=== PATIENT | female | born 1985 | race American Indian/Alaskan Native ===

== ENCOUNTER → 2017-08-17 | Outpatient (CLI) | payer BC | END | disposition home or self-care (01) | LOC: C.LAB 09:07 | PROVIDERS: ATTEND Obstetrics & Gynecology | DX: Z31.41 Encounter for fertility testing (principal) ==

== ENCOUNTER → 2017-09-04 | Outpatient (CLI) | payer BC | END | disposition home or self-care (01) | LOC: C.LAB 16:48 | PROVIDERS: ATTEND Obstetrics & Gynecology | DX: N97.9 Female infertility, unspecified (principal) ==

== ENCOUNTER → 2017-11-04 | Outpatient (CLI) | payer BC ==
[2017-11-04 17:24] LABS: HEMATOCRIT 34.9 % (37-47); HEMOGLOBIN 12.4 g/dL (12.0-16.0); MEAN CELL VOLUME 76.5 fL (80-100); MEAN CORPUSCULAR HEMOGLOBIN 27.2 pg (25-34); MEAN CORPUSCULAR HGB CONC 35.5 g/dl (32-36); MEAN PLATELET VOLUME 10.5 fL (7.4-10.4); PLATELET COUNT 219 K/uL (130-400); RED CELL DISTRIBUTION WIDTH CV 13.3 % (11.5-14.5); RED CELL DISTRIBUTION WIDTH SD 37.3 fL (36.4-46.3); WHITE BLOOD COUNT 9.66 K/uL (4.8-10.8)
[2017-11-04 18:41] LABS: HEP C IGG 13 YRS+OLDER_RFLX NEG (NEG)
== END | disposition home or self-care (01) ==
LOC: C.LAB 16:39
PROVIDERS: ATTEND Specialist
DX: Z01.83 Encounter for blood typing (principal); Z13.29 Encounter for screening for other suspected endocrine disorder; Z13.0 Encounter for screening for diseases of the blood and blood-forming organs and certain disorders involving the immune mechanism; Z13.21 Encounter for screening for nutritional disorder

== ENCOUNTER → 2017-11-17 | Outpatient (CLI) | payer BC | END | disposition home or self-care (01) | LOC: C.LAB 18:56 | PROVIDERS: ATTEND Specialist | DX: R79.89 Other specified abnormal findings of blood chemistry (principal) ==

== ENCOUNTER → 2018-02-02 | Outpatient (CLI) | payer BC | END | disposition home or self-care (01) | LOC: C.LAB1850 08:23 | PROVIDERS: ATTEND Specialist | DX: Z32.00 Encounter for pregnancy test, result unknown (principal) ==

== ENCOUNTER → 2018-02-10 | Outpatient (CLI) | payer BC | END | disposition home or self-care (01) | LOC: C.LAB1850 10:00 | PROVIDERS: ATTEND Specialist | DX: Z31.41 Encounter for fertility testing (principal) ==

== ENCOUNTER → 2018-02-17 | Outpatient (CLI) | payer BC ==
[2018-02-17 11:46] LABS: LUTEINIZING HORMONE 3.32 IU/L
== END | disposition home or self-care (01) ==
LOC: C.LAB1850 10:54
PROVIDERS: ATTEND Specialist
DX: Z31.41 Encounter for fertility testing (principal)

== ENCOUNTER → 2018-02-24 | Outpatient (CLI) | payer BC | END | disposition home or self-care (01) | LOC: C.LAB1850 07:19 | PROVIDERS: ATTEND Specialist | DX: Z31.41 Encounter for fertility testing (principal) ==

== ENCOUNTER 2020-10-03 07:06 | Inpatient (IN) ==
--- NOTE | 2020-10-03 07:36 | History & Physical Report ---
Date of Service October 03, 2020 Assessment & Plan (1) Normal labor: (2) Gestational diabetes: plan admission. epidural on demand. arom/pit as needed. check hourly blood sugars. anticipate . fetus category one. History of Present Illness Chief Complaint: contractions Primary Care Provider: George Shahid MD Patient is a 35yowf with iup at 40 3/7 weeks who presents to labor and delivery complaining of contractions, very painful. no lof/vb. +fm. Was last in the office and . complicated by ama and diet controlled GDM labs--B+/ab-/ri/rprnr/hepb-/hiv-/gc/ct-/ gbs neg/pano low risk/cf/sma neg/ carrier alpha thal Allergies Allergy/AdvReac Type Severity Reaction Status Date / Time No Known Allergies Allergy Verified 09/28/20 15:07 Home Medications Medication Instructions Recorded Confirmed Type calcium carbonate PO 02/16/20 09/28/20 History pediatric multivit no.17-ferrous tab PO 02/16/20 09/28/20 History fumarate 15 mg iron chewable tablet acetone (urine) test #50 ea 05/26/20 09/28/20 Rx blood sugar diagnostic #150 ea 05/26/20 09/28/20 Rx blood-glucose meter #1 ea 05/26/20 09/28/20 Rx lancets 33 gauge #150 ea 05/26/20 09/28/20 Rx Patient History Medical History Chorioretinal scar S/P retinal detachment repair Retinal detachment Surgical History H/O eye surgery H/O wisdom tooth extraction Family History Other Adopted Social History Smoking Status: Never smoker Hx Alcohol Use: Yes Hx Substance Use: No marital status: marital status details: Crow (35) [phone] Current Living Situation: Spouse Current Living Situation Comment: lives with spouse, 2 cats, 1 dog, 5 gerbils, spouse to change litter. 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 OB History g1--present Physical Exam Constitutional: WD/WN, vitals as above Gastrointestinal (Abdomen): soft, gravid, nt Psychiatric: A+Ox3, euthymic affect Genitourinary: cx-- per nursing toco--q2-3min, efm--125 with mod variability, accels to 150s, no decels. Results & Data ([facility]) Vital Signs (Past 12 Hours) Vital Signs Pulse BP 10/03/20 07:22 117 H 130/63 Code Status & VTE Plan VTE Prophylaxis Plan VTE Prophylaxis will be ordered: No Coding Level of Care Code None Diagnoses Normal labor O80; Z37.9 Gestational diabetes O24.419
[2020-10-03] MEDS: LACTATED RINGER'S 1,000 ML IV PRN ×2 (07:55→10:30)
[2020-10-03 07:58] LABS: Hematocrit (blood only) 35.6 % (37-47); Hemoglobin 12.8 g/dL (12.0-16.0); Mean Corpuscular Hemoglobin 28.7 pg (25-34); Mean Corpuscular Volume 79.8 fL (80-100); Mean Platelet Volume 11.1 fL (7.4-10.4); Platelet Count 144 K/uL (130-400); RDW Coefficient of Variation 15.6 % (11.5-14.5); RDW Standard Deviation 45.4 fL (36.4-46.3); Red Blood Count 4.46 M/uL (4.2-5.4); White Blood Count 12.53 K/uL (4.8-10.8)
[2020-10-03] MEDS ORDERED: BUPIVACAINE 0.25% 30 ML VIAL ONE (08:12)
[2020-10-03] MEDS ORDERED: fentaNYL citrate 100 MCG/2 ML VIAL ONE (08:12)
[2020-10-03] MEDS ORDERED: ePHEDrine sulfate 50 MG/ML AMP ONE (08:12)
[2020-10-03] MEDS ORDERED: SODIUM CHLORIDE 0.9% INJ 10 ML VIAL ONE (08:12)
[2020-10-03] MEDS ORDERED: fentaNYL 2MCG/ML ROPIVACAINE 1.25MG/ML 100 ML BAG EPI ONE (08:13)
[2020-10-03] MEDS ORDERED: ONDANSETRON INJ 2 MG/ML 2 ML VIAL IV PRN (08:18)
[2020-10-03] MEDS ORDERED: NALOXONE HCL 0.4 MG/1 ML VIAL/CARP IV PRN (08:18)
[2020-10-03] MEDS ORDERED: ePHEDrine sulfate 50 MG/ML AMP IV PRN (08:18)
[2020-10-03] MEDS ORDERED: diphenhydrAMINE 50 MG/ML VIAL IV PRN (08:18)
[2020-10-03] MEDS ORDERED: NALOXONE HCL 1 MG in SODIUM CHLORIDE 0.9% 1000ML 1,000 ML IV PRN (08:18)
[2020-10-03] MEDS ORDERED: fentaNYL 2MCG/ML ROPIVACAINE 1.25MG/ML 100 ML BAG EPI PRN (08:18)
--- NOTE | 2020-10-03 08:20 | Anesthesiology Consultation ---
Date of Service October 03, 2020 Assessment & Plan (1) Encounter for pre-operative examination: Chart Review Chart Review: Patient NOT seen in Pre Admission Testing and Acceptable Risk for Labor Epidural Consults Requested none History Height/Weight Height: 5 ft Weight: 55.792 kg Allergies Allergy/AdvReac Type Severity Reaction Status Date / Time No Known Allergies Allergy Verified 09/28/20 15:07 Medications Home Medications Medication Instructions Recorded Confirmed Last Taken calcium carbonate PO 02/16/20 09/28/20 Unknown pediatric multivit no.17-ferrous tab PO 02/16/20 09/28/20 Unknown fumarate 15 mg iron chewable tablet acetone (urine) test #50 ea 05/26/20 09/28/20 Unknown blood sugar diagnostic #150 ea 05/26/20 09/28/20 Unknown blood-glucose meter #1 ea 05/26/20 09/28/20 Unknown lancets 33 gauge #150 ea 05/26/20 09/28/20 Unknown Active Medications Generic Name Dose Route Start Last Admin Trade Name Freq PRN Reason Stop Dose Admin Lactated Ringer's 1,000 mls @ 125 mls/hr 10/03/20 07:31 10/03/20 07:55 Lr IV 10/05/20 07:30 999 mls/hr .Q8H PRN Administration L&D Protocol Protocol Past Medical History Medical History Chorioretinal scar S/P retinal detachment repair Retinal detachment Exercise / Class Metabolic Activity II 4-5 Yardwork/Stairs/Walk up hill Past Family History Family History Other Adopted Past Surgical History Surgical History H/O eye surgery H/O wisdom tooth extraction Past Anesthesia History No Hx of Anesthesia Complications and No Family Hx of Anesthesia Complications History of PONV No Hx of PONV and No Hx of Motion Sickness Social History Smoking Status: Never smoker Do You Dip or Chew Tobacco: No Hx Alcohol Use: Yes Hx Substance Use: No substance use type: does not use Physical Exam Vital Signs Last Vital Signs Temp 36.5 C 10/03/20 07:40 Pulse 118 H 10/03/20 08:29 Resp 20 10/03/20 07:40 BP 130/63 10/03/20 07:22 Pulse Ox 99 10/03/20 08:29 Testing Laboratory Results 10/03/20 07:38
[2020-10-03] MEDS ORDERED: HYDROCORTISONE 1% CRM 30 GM TUBE EXT PRN (09:46)
--- NOTE | 2020-10-03 13:10 | Labor Progress Brief Note ---
Date of Service October 03, 2020 Patient fully dilated was having recurrent D cells which initially improved with positioning. We then had her start to push and had some recurrent late decelerations these then resolved. I discussed the possibility of using the vacuum and what this would involve potential risks and benefits if the tracing worsens further would recommend operative vaginal intervention with vacuum bladder has been drained already Results & Data ([facility]) Vital Signs (Past 12 Hours) Vital Signs Temp Pulse Resp BP Pulse Ox 10/03/20 13:07 101 H 110/66 10/03/20 13:04 99 H 100 10/03/20 12:59 105 H 100 10/03/20 12:54 96 H 100 10/03/20 12:49 92 H 100 10/03/20 12:44 111 H 100 10/03/20 12:39 97 H 100 10/03/20 12:37 81 131/72 10/03/20 12:34 74 100 10/03/20 12:30 20 10/03/20 12:29 89 100 10/03/20 12:24 69 100 10/03/20 12:22 75 120/63 10/03/20 12:19 80 100 10/03/20 12:14 76 100 10/03/20 12:09 76 100 10/03/20 12:06 92 H 103/59 L 10/03/20 12:04 73 100 10/03/20 11:59 86 100 10/03/20 11:54 84 100 10/03/20 11:53 99 H 118/61 10/03/20 11:49 97 H 100 10/03/20 11:44 83 99 10/03/20 11:39 81 100 10/03/20 11:37 98 H 106/71 10/03/20 11:34 71 100 10/03/20 11:29 73 100 10/03/20 11:24 72 100 10/03/20 11:21 74 105/62 10/03/20 11:19 71 100 10/03/20 11:14 77 100 10/03/20 11:09 72 100 10/03/20 11:07 74 105/59 L 10/03/20 11:04 72 100 10/03/20 10:59 74 100 10/03/20 10:54 75 100 10/03/20 10:52 102 H 123/58 L 10/03/20 10:49 89 100 10/03/20 10:44 79 100 10/03/20 10:39 73 100 10/03/20 10:37 74 109/68 10/03/20 10:34 76 100 10/03/20 10:29 78 100 10/03/20 10:25 90 89 L 10/03/20 10:24 86 100 10/03/20 10:21 79 107/64 10/03/20 10:19 92 H 100 10/03/20 10:14 87 100 10/03/20 10:09 88 100 10/03/20 10:07 97.3 F L 79 20 108/64 10/03/20 10:04 104 H 100 10/03/20 09:59 78 98 10/03/20 09:54 87 100 10/03/20 09:51 87 103/63 10/03/20 09:49 87 100 10/03/20 09:44 100 H 100 10/03/20 09:39 83 100 10/03/20 09:37 92 H 102/60 10/03/20 09:34 81 100 10/03/20 09:29 81 100 10/03/20 09:24 84 100 10/03/20 09:22 71 110/56 L 10/03/20 09:19 93 H 100 10/03/20 09:14 82 100 10/03/20 09:09 71 100 10/03/20 09:06 87 99/63 L 10/03/20 09:04 74 100 10/03/20 08:59 73 99 10/03/20 08:54 78 100 10/03/20 08:51 90 106/62 10/03/20 08:49 78 100 10/03/20 08:45 46 L 110/62 10/03/20 08:44 96 H 100 10/03/20 08:43 93 H 118/69 10/03/20 08:41 88 107/56 L 10/03/20 08:39 96 H 109/57 L 100 10/03/20 08:37 101 H 112/59 L 10/03/20 08:34 85 100 10/03/20 08:29 118 H 99 10/03/20 08:24 115 H 100 10/03/20 07:40 97.7 F 20 03/30/21 07:22 97.7 F 117 H 20 130/63 Coding Level of Care Code None
[2020-10-03] MEDS: OXYTOCIN 30 UNITS/500 ML BAG IV PRN ×2 (13:55→14:37)
--- NOTE | 2020-10-03 14:30 | Delivery Summary ---
Vaginal Delivery Summary Date of Service October 03, 2020 Patient had repetitive late decelerations she initially had pushed well but these became repeating with every contraction and push so I recommended vacuum delivery at that time the patient was in right occiput anterior position +2 station. Bladder had been drained recently vacuum was applied to the head and over 1 contraction with no pop offs the patient delivered. Once head was delivered vacuum was removed mouth and then nares were suctioned there was no nuchal cord baby was delivered by gentle traction no excessive force live vigorous female cord clamped and cut cord gases obtained placenta removed with gentle traction IV Pitocin started the patient to enable delivery and made a small right medial lateral episiotomy she also had bilateral sulcus tears. Sulcus tears were repaired with 3-0 Vicryl and then the episiotomy repaired with 3-0 Vicryl as well rectal exam was negative for defect sponge and instrument count was correct estimated blood loss was 300 mL Vaginal Delivery Summary VAVD and 2nd Degree LAC [facility] Vaginal Delivery Charge Vaginal Delivery Codes: 72876 global code for the antepartum, delivery, and post- Delivery Type Details: VAVD and 2nd Degree LAC Procedure Anesthesia type: Epidural
[2020-10-03] MEDS ORDERED: SUPERCREAM 0.870% 15 GM JAR EXT PRN (15:09)
[2020-10-03] MEDS ORDERED: HYDROCORTISONE ACETATE 25 MG SUPP PR PRN (15:09)
[2020-10-03] MEDS ORDERED: BENZOCAINE 20% AER SPR 82.5 GM CAN EXT PRN (15:09)
[2020-10-03] MEDS ORDERED: DIPHTHERIA/TETANUS/PERTUSSIS 0.5 ML SYR/VIAL IM ONE (15:09)
[2020-10-03] MEDS ORDERED: OXYTOCIN 30 UNITS/500 ML BAG IV PRN (15:09)
[2020-10-03] MEDS ORDERED: bisacodyL 10 MG SUPP PR PRN (15:09)
[2020-10-03] MEDS ORDERED: ACETAMINOPHEN 325 MG TAB PO PRN (15:09)
[2020-10-03] MEDS ORDERED: oxyCODONE/ACETAMINOPHEN 5mg/325mg TAB PO PRN (15:09)
[2020-10-03 16:22] LABS: Base Excess Cord Arterial Bld -2.5 mEq/L (-9-1.8); Base Excess Cord Venous Blood -2.4 mEq/L (-7.7-1.9); CO2 Cord Arterial Blood 53 mmHg (39.1-73.5); Cord Venous Blood HCO3 24 mmol/L (18.4-26.8); Cord Venous Blood PCO2 44 mmHg (30.4-57.2); Cord Venous Blood PO2 21 mmHg (14.1-43.3); Cord Venous Blood pH 7.34 (7.20-7.44); HCO3 Cord Arterial Blood 25 mmol/L (19.7-28.5); Oxygen Sat Cord Arterial Blood < 60.0 % (<60); PO2 Cord Arterial Blood 15 mmHg (4.1-31.7); pH Cord Arterial Blood 7.29 (7.1-7.38)
[2020-10-03 16:23] LABS: O2 Saturation Cord Venous Bld < 60.0 % (<68)
[2020-10-03] MEDS: DOCUSATE SODIUM 100 MG CAP PO SCH (20:26)
[2020-10-03] MEDS: IBUPROFEN 600 MG TAB PO PRN (22:05)
[2020-10-04] MEDS: IBUPROFEN 600 MG TAB PO PRN ×4 (04:25→17:27)
[2020-10-04 06:28] LABS: Hematocrit (blood only) 22.1 % (37-47); Hemoglobin 7.7 g/dL (12.0-16.0); Mean Corpuscular Hgb Conc 34.8 g/dL (32-36); Mean Corpuscular Volume 80.4 fL (80-100); Mean Platelet Volume 10.6 fL (7.4-10.4); Platelet Count 124 K/uL (130-400); RDW Coefficient of Variation 15.6 % (11.5-14.5); RDW Standard Deviation 45.3 fL (36.4-46.3); Red Blood Count 2.75 M/uL (4.2-5.4); White Blood Count 19.41 K/uL (4.8-10.8)
--- NOTE | 2020-10-04 07:46 | Obstetrical Progress Note ---
Date of Service October 04, 2020 Assessment & Plan (1) Normal labor: PPD 1 cont current care Subjective Ambulation: ambulating normally Voiding: no voiding problems Passing Gas:: No Diet Tolerance:: regular diet Lochia:: Small Feeding Type:: breast feeding Current Pain Level(1-10): 3 Physical Exam Constitutional WD/WN, vitals as above Results & Data ([facility]) Vital Signs (Past 12 Hours) Vital Signs Temp Pulse Pulse Resp BP BP Pulse Ox 10/04/20 04:30 98.1 F 109 H 18 106/70 99 10/04/20 00:00 99.0 F 119 H 119 H 16 123/75 123/75 100
[2020-10-04] MEDS: DOCUSATE SODIUM 100 MG CAP PO SCH ×2 (08:42→21:32)
[2020-10-04] MEDS: PRENATAL VITAMIN 1 TAB PO SCH (08:42)
[2020-10-04] MEDS ORDERED: Nursing to Pharmacy Communication SCH (19:30)
[2020-10-04] MEDS ORDERED: bisacodyL 5 MG TABEC PO SCH (20:00)
[2020-10-04] MEDS: IBUPROFEN SUSPENSION 100MG/5ML 120ML PO PRN (21:32)
--- NOTE | 2020-10-05 06:45 | Obstetrical Progress Note ---
Date of Service October 05, 2020 Assessment & Plan (1) state: PPD#2, ready for d/c home, instruction reviewed. Subjective Ambulation: ambulating normally Voiding: no voiding problems Passing Gas:: Yes Diet Tolerance:: regular diet Lochia:: Small Feeding Type:: breast feeding Physical Exam Constitutional WD/WN, vitals as above Eyes PERRL, conjunctivae normal, anicteric sclerae Neck normal visual inspection Respiratory normal respiratory effort and able to speak in complete sentences; no respiratory distress and no labored breathing Cardiovascular Rate/Rhythm: regular rate and regular rhythm Extremities: no edema Chest (Breasts) Chest: normal inspection of chest Gastrointestinal (Abdomen) Inspection/Auscultation: abdomen normal to inspection Soft, postgravid Psychiatric A+Ox3, euthymic affect Genitourinary OB Exam Abdomen: + fundal height Fundus: + firm and + relation to umbilicus (fundus just below umbilicus); not tender Results & Data ([facility]) Vital Signs (Past 12 Hours) Vital Signs Temp Pulse Resp BP 10/04/20 23:30 97.7 F 102 H 18 113/68 10/04/20 20:00 97.9 F 105 H 20 123/72
[2020-10-05 06:54] LABS: Hematocrit (blood only) 20.5 % (37-47)
[2020-10-05] MEDS: IBUPROFEN SUSPENSION 100MG/5ML 120ML PO PRN ×2 (08:24→12:50)
[2020-10-05] MEDS: PRENATAL VITAMIN 1 TAB PO SCH (08:24)
[2020-10-05] MEDS: DOCUSATE SODIUM 100 MG CAP PO SCH (08:24)
--- NOTE | 2020-10-09 07:20 | Discharge Summary ---
Date of Service October 09, 2020 Admission HPI Per Admitting Provider Patient is a 35yowf with iup at 40 3/7 weeks who presents to labor and delivery complaining of contractions, very painful. no lof/vb. +fm. Was last in the office and . complicated by ama and diet controlled GDM labs--B+/ab-/ri/rprnr/hepb-/hiv-/gc/ct-/ gbs neg/pano low risk/cf/sma neg/ carrier alpha thal Discharge Data Consultations 10/03/20 07:32 Consult Anesthesiology Stat Hospital Course (1) state: PPD#2, ready for d/c home, instruction reviewed. Note anemic from delivery Coding Level of Care Code None Diagnoses state Z39.2
== END 2020-10-05 20:10 | disposition home or self-care (01) | DRG 807 ==
LOC: OPB 07:06 → 4S1 07:11 → 4S2 18:48